=== PATIENT | female | born 1940 | race Caucasian/White ===

== ENCOUNTER 2017-07-15 19:29 | Inpatient (IN) | payer OTHER ==
[~2017-07-15] VITALS: Ht 157.5 cm; Wt 76.1 kg
[2017-07-15 20:58] LABS: Basophils # (auto) 0 uL; Basophils % (auto) 0.2 % (0.0-2.0); Eosinophils # (auto) 0 uL; Hematocrit 39.2 % (36.0-46.0); Hemoglobin 12.9 g/dL (12.2-16.2); Lymphocytes # (auto) 0.9 uL; Lymphocytes % (auto) 5.2 % (10.0-50.0); Mean Corpuscular Hemoglobin 29.9 pg (28.0-32.0); Mean Corpuscular Volume 90.6 fL (80.0-100.0); Monocytes # (auto) 0.9 uL; Monocytes % (auto) 5.4 % (0.0-12.0); Neutrophils # (auto) 15.5 uL; Neutrophils % (auto) 89.2 % (37.0-80.0); Platelet Count (auto) 248 10^3/uL (140-450); Red Blood Cells 4.32 10^6/uL (4.0-5.20); Red Cell Distribution Width 13.2 % (11.8-14.3); White Blood Cell 17.4 10^3/uL (4.4-10.8)
[2017-07-15 21:20] LABS: Lactic Acid w/Reflex 2.7 mmol/L (0.4-2.0)
[2017-07-15 21:22] LABS: Alanine Aminotransferase 42 U/L (13-56); Albumin 2.2 g/dL (3.4-5.0); Alkaline Phosphatase 158 U/L (45-117); Anion Gap 12 (5-15); Aspartate Aminotransferase 55 U/L (15-37); BUN/Creatinine Ratio 29.4; Bilirubin, Total 0.7 mg/dL (0.2-1.0); Blood Alcohol < 3.0 mg/dL (0-5); Blood Urea Nitrogen 50 mg/dL (7-18); Calcium 8.4 mg/dL (8.5-10.1); Carbon Dioxide 24 mmol/L (21-32); Chloride 93 mmol/L (98-107); GFR African American 38 mL/min; GFR Non-African American 31 mL/min; Glucose 175 mg/dL (74-106); Magnesium 2.7 mg/dL (1.6-2.6); Sodium 129 mmol/L (136-145); Total Protein 6.9 g/dL (6.4-8.2)
[2017-07-15 21:45] LABS: Potassium 2.8 mmol/L (3.5-5.1)
[2017-07-16] MEDS ORDERED: SODIUM CHLORIDE 0.9% 250 ML IV ONE
[2017-07-16] MEDS ORDERED: POTASSIUM CHL 20 Meq TABLET PO ONE
[2017-07-16 02:13] LABS: Urine Bacteria MANY /hpf (None Seen); Urine Blood 1+ /uL (Negative); Urine Mucus FEW (None Seen); Urine WBC 40 /hpf (0 - 5)
[2017-07-16] MEDS ORDERED: LOSA100T27 PO (02:36)
[2017-07-16] MEDS ORDERED: PARO7.5C2 PO (02:41)
[2017-07-16 02:43] LABS: Alcohol, Urine < 3.0 mg/dL (0-5); Amphetamine Screen, Urine NEGATIVE (NEGATIVE); Barbiturate Scree,Urine NEGATIVE (NEGATIVE); Benzodiazephine Screen, Urine NEGATIVE (NEGATIVE); Cannabinoid Screen, Urine NEGATIVE (NEGATIVE); Cocaine Screen, Urine NEGATIVE (NEGATIVE); Opiate Scree,Urine NEGATIVE (NEGATIVE); Phencyclidine Screen, Urine NEGATIVE (NEGATIVE)
[2017-07-16] MEDS ORDERED: METO-159 PO (02:44)
[2017-07-16] MEDS ORDERED: TRAM50TA2 PO (02:44)
[2017-07-16] MEDS ORDERED: TEMAZEPAM 15 MG CAP PO PRN (08:45)
[2017-07-16] MEDS ORDERED: ACETAMINOPHEN 500 MG TAB PO PRN (08:45)
[2017-07-16] MEDS ORDERED: PROMETHAZINE HCL 25 MG/ML 1ML IV PRN (08:45)
[2017-07-16] MEDS ORDERED: LACTULOSE 20Gm/30ML SOLN PO PRN (08:45)
[2017-07-16] MEDS ORDERED: MORPHINE SULF INJ 2 MG/ML SYRINGE 1ML IV PRN (08:45)
[2017-07-16] MEDS ORDERED: LORazepam 0.5 MG TAB PO PRN (08:45)
[2017-07-16] MEDS ORDERED: DEXTROSE (50%) 50ML SYRG IV PRN (08:45)
[2017-07-16] MEDS ORDERED: MORPHINE SULFATE 4 MG/ML SYR/VIAL IV PRN (08:45)
[2017-07-16] MEDS ORDERED: NITROGLYCERIN 0.4 MG SL TAB SL PRN (08:45)
[2017-07-16] MEDS: SOD CHL 0.9%/ KCL 20MEQ 1,000 ML IV SCH ×2 (09:35→19:52)
[2017-07-16] MEDS: cefTRIAXone 1GM/10ml IVPUSH 10 ML IV SCH (09:35)
[2017-07-16] MEDS ORDERED: ENOXAPARIN SOD 30 MG/0.3 ML SYRINGE SC SCH (10:00)
[2017-07-16] MEDS ORDERED: ENOXAPARIN SOD 40 MG/0.4 ML SYRINGE SC SCH (10:00)
[2017-07-16] MEDS: ASPirin 81 mg TAB PO SCH (10:09)
[2017-07-16 10:46] LABS: INR 0.94 (0.9-1.15); Partial Thromboplastin Time 24.7 sec (22.64-33.71); Prothrombin Time 10.2 sec (9.37-12.3)
[2017-07-16] MEDS: HYDROcodone-ACET 5/325MG TAB PO PRN ×2 (11:24→17:37)
[2017-07-16] MEDS: ACCU-CHEK COMFORT CURVE STRIP VI SCH ×3 (11:55→23:52)
[2017-07-16] MEDS: InsuLIN REG 1unit/0.01ml Soln (100units/ml) SC SCH ×3 (11:55→23:52)
[2017-07-16 17:00] VITALS: BP 122/48
[2017-07-16 21:28] VITALS: BP 114/55
[2017-07-16] MEDS: ATORVASTATIN 20 MG TAB PO SCH (22:12)
[2017-07-17] VITALS (7 sets, daily range): BP systolic 129–148; BP diastolic 59–98
[2017-07-17] MEDS: HYDROcodone-ACET 5/325MG TAB PO PRN ×3 (04:34→22:07)
[2017-07-17] MEDS: SOD CHL 0.9%/ KCL 20MEQ 1,000 ML IV SCH ×2 (04:35→14:45)
[2017-07-17] MEDS: InsuLIN REG 1unit/0.01ml Soln (100units/ml) SC SCH (06:00)
[2017-07-17] MEDS: ACCU-CHEK COMFORT CURVE STRIP VI SCH (06:14)
[2017-07-17 07:06] LABS: Basophils # (auto) 0 uL; Eosinophils # (auto) 0 uL; Hematocrit 33.5 % (36.0-46.0); Lymphocytes % (auto) 7.1 % (10.0-50.0); Mean Corpuscular Hemoglobin 29.6 pg (28.0-32.0); Mean Corpuscular Volume 89.7 fL (80.0-100.0); Monocytes # (auto) 1.2 uL; Monocytes % (auto) 8.1 % (0.0-12.0); Neutrophils # (auto) 12.1 uL; Neutrophils % (auto) 84.8 % (37.0-80.0); Platelet Count (auto) 215 10^3/uL (140-450); Red Blood Cells 3.73 10^6/uL (4.0-5.20); Red Cell Distribution Width 12.9 % (11.8-14.3); White Blood Cell 14.2 10^3/uL (4.4-10.8)
[2017-07-17 07:36] LABS: Albumin 1.6 g/dL (3.4-5.0); BUN/Creatinine Ratio 29.6; Bilirubin, Total 0.6 mg/dL (0.2-1.0); Calcium 7.7 mg/dL (8.5-10.1); Total Protein 5.4 g/dL (6.4-8.2)
[2017-07-17] MEDS ORDERED: POTASSIUM CHL 10% (20 MEQ/15ML) 15ml ORAL SOLN PO ONE (09:15)
[2017-07-17] MEDS: ASPirin 81 mg TAB PO SCH (09:20)
[2017-07-17] MEDS: cefTRIAXone 1GM/10ml IVPUSH 10 ML IV SCH (09:22)
[2017-07-17] MEDS: LEVOFLOXACIN 750MG 150 ML IV SCH (12:32)
[2017-07-17] MEDS: PANTOPRAZOLE 40 MG TAB PO SCH (12:32)
[2017-07-17] MEDS: ENOXAPARIN SOD 40 MG/0.4 ML SYRINGE SC SCH (12:33)
[2017-07-17] MEDS: METOPROLOL TARTRATE 25 MG TAB PO SCH (17:55)
[2017-07-17] MEDS: ATORVASTATIN 20 MG TAB PO SCH (22:06)
[2017-07-18] MEDS: SOD CHL 0.9%/ KCL 20MEQ 1,000 ML IV SCH ×2 (00:45→13:38)
[2017-07-18 05:42] VITALS: BP 136/66
[2017-07-18] MEDS: HYDROcodone-ACET 5/325MG TAB PO PRN (05:56)
[2017-07-18] MEDS: METOPROLOL TARTRATE 25 MG TAB PO SCH ×2 (05:56)
[2017-07-18 09:00] VITALS: BP 111/45
[2017-07-18] MEDS: cefTRIAXone 1GM/10ml IVPUSH 10 ML IV SCH (09:07)
[2017-07-18 09:58] LABS: Basophils # (auto) 0 uL; Basophils % (auto) 0.2 % (0.0-2.0); Eosinophils # (auto) 0 uL; Eosinophils % (auto) 0.2 % (0.0-7.0); Hematocrit 35.3 % (36.0-46.0); Hemoglobin 11.6 g/dL (12.2-16.2); Lymphocytes # (auto) 1.1 uL; Lymphocytes % (auto) 7.3 % (10.0-50.0); Mean Corpuscular Hemoglobin 29.7 pg (28.0-32.0); Mean Corpuscular Hgb Conc. 32.9 g/dL (32.0-36.0); Mean Corpuscular Volume 90.4 fL (80.0-100.0); Monocytes # (auto) 0.9 uL; Monocytes % (auto) 5.8 % (0.0-12.0); Neutrophils % (auto) 86.5 % (37.0-80.0); Platelet Count (auto) 255 10^3/uL (140-450); Red Cell Distribution Width 13.7 % (11.8-14.3)
[2017-07-18 10:22] LABS: BUN/Creatinine Ratio 20.3; Calcium 8.1 mg/dL (8.5-10.1); Magnesium 2.3 mg/dL (1.6-2.6); Potassium 4.3 mmol/L (3.5-5.1)
[2017-07-18] MEDS: ENOXAPARIN SOD 40 MG/0.4 ML SYRINGE SC SCH (10:24)
[2017-07-18] MEDS: ASPirin 81 mg TAB PO SCH (10:25)
[2017-07-18] MEDS: PANTOPRAZOLE 40 MG TAB PO SCH (10:25)
[2017-07-18] MEDS: LEVOFLOXACIN 750MG 150 ML IV SCH (10:25)
[2017-07-18 10:55] VITALS: BP 129/62
[2017-07-19 11:23] LABS: Folate (Folic Acid) 12.14 ng/mL (5.38-24)
== END 2017-07-18 14:15 | disposition short-term general hospital (02) | DRG 871 ==
LOC: ER 19:29 → TELE 19:30 → TELE-WESTW 07-16 14:40
PROVIDERS: ADMIT Internal Medicine; ATTEND Internal Medicine
DX: A41.9 Sepsis, unspecified organism (principal); G93.41 Metabolic encephalopathy; N17.9 Acute kidney failure, unspecified; N39.0 Urinary tract infection, site not specified; E87.1 Hypo-osmolality and hyponatremia; I13.10 Hypertensive heart and chronic kidney disease without heart failure, with stage 1 through stage 4 chronic kidney disease, or unspecified chronic kidney disease; B96.89 Other specified bacterial agents as the cause of diseases classified elsewhere; E87.6 Hypokalemia; I70.0 Atherosclerosis of aorta; I73.9 Peripheral vascular disease, unspecified; N18.9 Chronic kidney disease, unspecified; R32 Unspecified urinary incontinence; R79.1 Abnormal coagulation profile; R73.9 Hyperglycemia, unspecified; M19.90 Unspecified osteoarthritis, unspecified site; M54.9 Dorsalgia, unspecified; Z79.82 Long term (current) use of aspirin; Z90.710 Acquired absence of both cervix and uterus; Z79.899 Other long term (current) drug therapy
CPT/HCPCS: 36415; 51702; 70450; 71010; 80048; 80053; 80061; 80307; 80320; 81001; 82550; 82607; 82746; 82962; 83036; 83605; 83735; 83880; 84443; 84484; 85025; 85379; 85610; 85730; 87040; 87077; 87086; 87088; 87186; 93005; 93306; 93886; 93970; 95819; 96361; 96372; 96374; 97163; J1956